=== PATIENT | male | born 1970 ===

== ENCOUNTER 2023-11-17 09:49 | Outpatient (REF) | payer OTHER, SELFPAY | END 2023-11-17 09:50 | disposition home or self-care (01) | LOC: HO.SH 09:49 | PROVIDERS: Visit Provider Physician Assistant | DX: Z01.118 Encounter for examination of ears and hearing with other abnormal findings (principal); H90.0 Conductive hearing loss, bilateral | CPT/HCPCS: 92557; 92567 ==